=== PATIENT | female | born 1935 | race Caucasian/White ===

== ENCOUNTER 2020-08-04 20:47 | Inpatient (IN) | payer MEDICARE, OTHER ==
[~2020-08-04] VITALS: Ht 149.9 cm; Wt 51.3 kg
--- NOTE | 2020-08-04 21:07 | NUR ---
LUCIA FROM [facility]. TO ER BED 11. LINDSAY SPEAKER, YAMILA JUNG AT BEDSIDE FOR TRANSLATION. BROUGHT IN FOR PT HAS BEEN NOTED WALKING AROUND THE FACILITY AND SLEEPLESSNESS X 2 DAYS. PT WAS ALSO REPORTED POOR ORAL INTAKE WELL. WAS AT THE BEDSIDE FOR EVAL. ORDERS RECEIVED, NOTED AND CARIED OUT.
[2020-08-04 21:14] LABS: HEMATOCRIT 38 % (33-45)
[2020-08-04 21:17] LABS: BASOPHILS % (AUTO) 0.4 % (0.0-2.0); EOSINOPHILS % (AUTO) 2.2 % (0.0-6.0); HEMOGLOBIN 12.6 g/dL (11.5-14.8); LYMPHOCYTES # (AUTO) 1.7 /CMM (0.8-4.8); LYMPHOCYTES % (AUTO) 23.7 % (20.0-44.0); MEAN CORPUSCULAR HGB CONC 33 g/dl (31.0-36.0); MEAN CORPUSCULAR VOLUME 93 fL (82-100); MONOCYTES # (AUTO) 0.5 /CMM (0.1-1.30); MONOCYTES % (AUTO) 7.1 % (2.0-12.0); NEUTROPHILS # (AUTO) 4.8 /CMM (1.8-8.9); NEUTROPHILS % (AUTO) 66.6 % (43.0-81.0); PLATELET COUNT (AUTO) 282 /CMM (150-450); RED BLOOD CELL COUNT(AUTO) 4.08 MIL/uL (4.0-5.2); WHITE BLOOD COUNT (AUTO) 7.3 K/uL (4.3-11.0)
[2020-08-04 21:28] LABS: ALANINE AMINOTRANSFERASE 29 U/L (12-78); ALBUMIN 3.6 g/dL (3.4-5.0); ALCOHOL, BLOOD < 3 mg/dL (0-0); ALKALINE PHOSPHATASE 77 U/L (46-116); ASPARTATE AMINOTRANSFERASE 27 U/L (15-37); BILIRUBIN,DIRECT 0.1 mg/dL (0.0-0.2); BILIRUBIN,TOTAL 0.4 mg/dL (0.2-1.0); CALCIUM, SERUM 8.9 mg/dL (8.5-10.1); CARBON DIOXIDE 28 mmol/L (21-32); CHLORIDE 104 mmol/L (98-107); CREATININE 1.3 mg/dL (0.6-1.3); GLUCOSE 96 mg/dL (74-106); SODIUM SERUM 142 mmol/L (136-145); TOTAL PROTEIN, SERUM 7.6 g/dL (6.4-8.2); UREA NITROGEN, BLOOD 33 mg/dL (7-18)
[2020-08-04 21:29] LABS: ACETAMINOPHEN < 10 ug/ml (10-30)
--- NOTE | 2020-08-04 21:31 | NUR ---
COVID SWABBED, SENT TO LAB
--- NOTE | 2020-08-04 21:44 | NUR ---
urine sent to lab
[2020-08-04 21:57] LABS: BILIRUBIN,URINE Negative (NEGATIVE); COLOR,URINE YELLOW (YELLOW); LEUKOCYTE ESTERASE ,URINE Moderate (NEGATIVE); NITRITE, URINE Positive (NEGATIVE); PROTEIN,URINE 30 mg/dl (NEGATIVE); UGLUCOSE Negative (NEGATIVE); UROBILINOGEN,URINE 0.2 EU/dL (0.2)
[2020-08-04] MEDS ORDERED: IV NS 0.9% 1,000 ML BAG IV ONE (22:00)
[2020-08-04 22:01] LABS: B-TYPE NATRIURETIC PEPTIDE 116 PG/ML (0-125)
[2020-08-04 22:07] LABS: RBC,URINE 0-2 /HPF (0-2); WBC,URINE 81-100 /HPF (0-3)
[2020-08-04 22:08] LABS: BACTERIA,URINE Moderate /HPF (None Seen); SQUAMOUS EPITHELIAL CELL,UR 0-2 /HPF (None Seen)
[2020-08-04] MEDS ORDERED: CEFTRIAXONE 1GM BAG (ER ONLY) 1 GM/50 ML PIGGYBACK IV ONE (22:30)
[2020-08-04] MEDS ORDERED: IV NS 0.9% 500 ML BAG IV ONE (22:30)
--- NOTE | 2020-08-04 22:30 | NUR ---
CALLED VALMEYER FIXER SUPERVISOR FOR PSYCH EVAL.
[2020-08-04] MEDS ORDERED: CEPH500C2 PO (23:00)
[2020-08-04] MEDS ORDERED: CEFTRIAXONE 1GM BAG (ER ONLY) 50 ML IV ONE (23:33)
--- NOTE | 2020-08-04 23:39 | NUR ---
PERICO [id number]
--- NOTE | 2020-08-04 23:47 | NUR ---
report given to matt Moseley for nova
--- NOTE | 2020-08-05 00:32 | NUR ---
IV removed. Catheter intact and site benign. Pressure and 4x4 applied to site. No bleeding noted.
--- NOTE | 2020-08-05 00:42 | NUR ---
PT WAS TRANSFERRE TO GPS UNIT IN STABLE CONDITION.
[2020-08-05 01:00] VITALS: BP 154/90
[2020-08-05] MEDS ORDERED: MAG HYDROX/AL HYDROX/SIMETH 30 ML UDC PO PRN (01:00)
[2020-08-05] MEDS ORDERED: MAGNESIUM HYDROXIDE 30 ML UDC PO PRN (01:00)
[2020-08-05] MEDS ORDERED: BLOOD SUGAR DIAGNOSTIC 1 EACH STRIP IN ONE (01:00)
--- NOTE | 2020-08-05 01:00 | NUR ---
PATIENT IS A 84 YEAR OLD FEMALE, BROUGHT IN TO THE HOSPITAL BY AMBULANCE FROM [facility] , ADMITTED ON A 5150 HOLD GRAVE DISABILITY, PT IS FARSI SPEAKING ONLY WITH VERY LITTLE LATVIAN, ASK BRAD RN (SHYAM RN)WHO IS FARSI SPEAKING ALSO TO TRANSLATE, UPON FACE TO FACE ASSESSMENT WITH INTERVIEW PT CAN TELL HER NAME BUT SHE IS CLAIMING THAT SHE IS ON HER HOUSE AND SHE WANT TO GO TO THE [place], ALSO SHE IS UNABLE TO REMEMBER WHERE SHE IS AND HOW SHE GET TO THE HOSPITAL. PATIENT WAS ON THE UNIT, PATIENT TENDS TO WANDER FROM ROOM TO ROOM. PER HOLD PATIENT HAS BEEN HAVING ALTERED STATE OF AWARENESS, REFUSING TO COMPLY AND UNABLE TO CARE FOR HERSELF. Q15 SAFETY CHECKS INITIATED. CARE PLAN STARTED. PATIENT WILL BE UNDER THE CARE OF DR. NAVARRETE AND KARELY HAMPTON FOR PSYCHE AND MEDICAL DOCTORS RESPECTIVELY. BELONGINGS AND CONTRABAND CHECKED. SKIN AND BODY ASSESSMENT DONE, NO OPEN WOUNDS NOTED EXCEPT FOR BRUISES. PICTURES TAKEN AND PLACED IN THE CHART. GUIDE TO PRESCRIPTION MEDICATIONS AND PATIENT'S RIGHTS HANDBOOK PROVIDED, PATIENT FURTHER ADVISED OF THE HOLD. WILL MONITOR PATIENT FOR MOOD, SAFETY AND BEHAVIOR.
[2020-08-05] MEDS ORDERED: BISA10SU61 RC (04:47)
[2020-08-05] MEDS ORDERED: SENN-261 PO (04:56)
[2020-08-05] MEDS ORDERED: MEMA10TA PO (04:56)
[2020-08-05] MEDS ORDERED: MELA5TAB PO (04:56)
[2020-08-05] MEDS ORDERED: TRAZ-182 PO (04:56)
[2020-08-05] MEDS ORDERED: OLAN2.5T3 PO (04:56)
[2020-08-05] MEDS ORDERED: QUET25TA PO (04:56)
[2020-08-05] MEDS ORDERED: PANT20TA2 PO (04:56)
--- NOTE | 2020-08-05 06:34 | NUR ---
CALL GRAND DAUGHTER OLIMPIA [phone] BUT NO ANSWER, LEAVE MSG TO VOICEMAIL REGARDING THE ADMISSION OF HER GRANDMOTHER TO THE UNIT
[2020-08-05 08:00] VITALS: BP 155/82
[2020-08-05] MEDS: CEPHALEXIN MONOHYDRATE 500 MG CAPSULE PO SCH ×2 (09:44→17:53)
--- NOTE | 2020-08-05 10:45 | NUR ---
Facility Contact: SW received an email from her Chief Operations Officer, Steph Madrid, stating the post adoption coordinator at [facility], Bernrado , informed her that the pt will not be reaccepted to their facility.
--- NOTE | 2020-08-05 11:10 | NUR ---
Family Contact: SW called the pts son, Jesse ([phone]), and left a voicemail stating that the SW would like to discuss the pts discharge and treatment plan.
--- NOTE | 2020-08-05 11:35 | NUR ---
Family Contact: SW called the pts granddaughter, Ann ([phone]), and received collateral information from her. She stated that the pt has been moving around from placement to placement because no facility can manage her wandering behaviors. SW stated that she can attempt to find a locked facility for the pt.
[2020-08-05 16:00] VITALS: BP 119/62
--- NOTE | 2020-08-05 17:25 | NUR ---
Initial Discharge Plan: Pt currently resides at [facility] located at [address] [place] [address]; ([phone]). Per pt, she was unable to state where to return. Per Bernardo at the facility ([phone]), pt cannot return. NEW will work with the pt and the MD regarding appropriate discharge planning. SW will form a safe and proper discharge plan.
--- NOTE | 2020-08-05 19:41 | NUR ---
RN NOTE PATIENT SOCIALIZED WITH OTHERS THROUGHOUT THE DAY, PATIENT SPEAKING IN MULTIPLE LANGUAGES AT A TIME, MAKING IT DIFFICULT TO COMMUNICATE WITH OTHERS. PATIENT WITH S/S OF CONFUSION. PATIENT WANDERING INTO OTHER PATIENTS ROOMS AND GOING THROUGH THEIR BELONGINGS. PATIENT REDIRECTED THROUGHOUT THE DAY. PATIENT CURRENTLY IN BED. BED LOCKED IN LOWEST POSITION. ALL SAFETY MEASURES FOLLOWED. END RN NOTE. DAVE.
[2020-08-05 20:00] VITALS: BP 145/73
[2020-08-05 20:43] VITALS: BP 145/73
[2020-08-06] MEDS: TEMAZEPAM 7.5 MG CAPSULE PO PRN (00:01)
--- NOTE | 2020-08-06 00:04 | NUR ---
GPS RN NOTE: INSOMNIA PATIENT IS UNABLE TO SLEEP, HYPERVERBAL, RESTLESS. PRN RESTORIL 7.5 MG 1 CAP PO GIVEN. WILL CONTINUE TO MONITOR.
--- NOTE | 2020-08-06 03:36 | NUR ---
RN NOTE PATIENT HAS BEEN SLEEPING COMFORTABLY SINCE 129, RESTORIL WAS GIVEN ORDERED.
[2020-08-06 07:52] LABS: ALBUMIN 3.4 g/dL (3.4-5.0); BILIRUBIN,TOTAL 0.4 mg/dL (0.2-1.0); CALCIUM, SERUM 8.9 mg/dL (8.5-10.1); POTASSIUM 3.7 mmol/L (3.5-5.1); TOTAL PROTEIN, SERUM 7.4 g/dL (6.4-8.2)
[2020-08-06 08:00] VITALS: BP 110/56
[2020-08-06] MEDS: CEPHALEXIN MONOHYDRATE 500 MG CAPSULE PO SCH ×2 (09:48→17:23)
[2020-08-06 16:00] VITALS: BP 142/90
[2020-08-06] MEDS: RIVASTIGMINE TARTRATE 1.5 MG CAPSULE PO SCH (19:43)
[2020-08-06] MEDS: risperiDONE 1 MG TABLET PO SCH (19:43)
[2020-08-06 20:00] VITALS: BP 125/70
[2020-08-06 20:35] VITALS: BP 125/70
[2020-08-06] MEDS: TRAZODONE 50 MG TABLET PO SCH (21:37)
[2020-08-07] MEDS: TEMAZEPAM 7.5 MG CAPSULE PO PRN (00:23)
--- NOTE | 2020-08-07 00:23 | NUR ---
GPS RN NOTE: INSOMNIA PATIENT IS UNABLE TO SLEEP, HYPERVERBAL, PRN RESTORIL 7.5 MG 1 CAP PO GIVEN. WILL CONTINUE TO MONITOR.
[2020-08-07] MEDS: risperiDONE 1 MG TABLET PO SCH ×2 (06:17→17:20)
[2020-08-07] MEDS: RIVASTIGMINE TARTRATE 1.5 MG CAPSULE PO SCH ×2 (06:17→17:20)
--- NOTE | 2020-08-07 07:30 | NUR ---
RN NOTES PT AWAKE, WALKING ALONG THE HALLWAY, NO SIGN OF PAIN OR DISTRESS, TALKS TO HERSELF, CALM, WILL CONTINUE TO MONITOR.
[2020-08-07 08:00] VITALS: BP 148/67
[2020-08-07] MEDS: CEPHALEXIN MONOHYDRATE 500 MG CAPSULE PO SCH ×2 (08:44→16:14)
[2020-08-07] MEDS: LORAZEPAM 0.5 MG TABLET PO PRN (12:20)
--- NOTE | 2020-08-07 15:26 | NUR ---
RN-CO: DR Rodriguez made aware of the patient's hold expiring today.
[2020-08-07 16:00] VITALS: BP 127/90
--- NOTE | 2020-08-07 18:04 | NUR ---
RN NOTES PT AWAKE, SITTING IN HER CHAIR, ALERT TO SELF, WITH CONFUSION, WITH EPISODES OF TALKING TO HERSELF, PM MEDS GIVEN, COMPLIANT WITH MEDS, PM CARE PROVIDED, SAFETY PRECAUTIONS OBSERVED.
[2020-08-07 20:27] VITALS: BP 130/72
[2020-08-07] MEDS: TRAZODONE 50 MG TABLET PO SCH (21:17)
--- NOTE | 2020-08-07 21:45 | NUR ---
RN NOTE PT RECEIVED ALERT AND VERBALLY RESPONSIVE, DENIES ANY PAIN, BREATHING IS UNABORED, TALKS TO HERSELF, DISORGANIZED, AMBULATES OCCASIONALLY IN HALLWAY WITH STEADY GAIT. NO VOICED NEEDS AT THIS TIME,PT IS COMPLIANT WITH MEDICATIONS. SAFETY PRECAUTIONS OBSERVED. WILL CONTINUE MONITORING Q15 MINS WITH THE HELP OF STAFF TO MAINTAIN SAFETY.
[2020-08-08] MEDS: TEMAZEPAM 7.5 MG CAPSULE PO PRN (02:22)
[2020-08-08] MEDS: RIVASTIGMINE TARTRATE 1.5 MG CAPSULE PO SCH ×2 (06:12→17:56)
[2020-08-08] MEDS: risperiDONE 1 MG TABLET PO SCH ×2 (06:13→17:56)
[2020-08-08 08:00] VITALS: BP 128/77
[2020-08-08] MEDS: CEPHALEXIN MONOHYDRATE 500 MG CAPSULE PO SCH ×2 (09:00→17:53)
[2020-08-08] MEDS ORDERED: SENNOSIDES 8.6 MG TABLET PO PRN (12:00)
[2020-08-08 16:00] VITALS: BP 110/63
[2020-08-08 20:55] VITALS: BP 123/61
[2020-08-08] MEDS: TRAZODONE 50 MG TABLET PO SCH (21:02)
[2020-08-09] MEDS: RIVASTIGMINE TARTRATE 1.5 MG CAPSULE PO SCH ×2 (06:50→18:23)
[2020-08-09] MEDS: risperiDONE 1 MG TABLET PO SCH ×2 (06:51→18:23)
[2020-08-09 08:00] VITALS: BP 112/64
[2020-08-09] MEDS: BISACODYL SUPP (10 MG) 10 MG/SUPP.RECT SUPP.RECT RC SCH (09:00)
[2020-08-09] MEDS: MEMANTINE HCL 5 MG TABLET PO SCH (09:01)
[2020-08-09] MEDS: PANTOPRAZOLE 40 MG TABLET.DR PO SCH (09:01)
[2020-08-09] MEDS: CEPHALEXIN MONOHYDRATE 500 MG CAPSULE PO SCH ×2 (09:01→17:10)
--- NOTE | 2020-08-09 09:15 | NUR ---
RN NOTE PT RECEIVED ALERT AND ORIENTED X1-2. DENIES ANY PAIN, BREATHING IS UNABORED, TALKS TO HERSELF, DISORGANIZED, AMBULATES OCCASIONALLY IN HALLWAY WITH STEADY GAIT. NO VOICED NEEDS AT THIS TIME, PT IS COMPLIANT WITH MEDICATIONS. SAFETY PRECAUTIONS OBSERVED. WILL CONTINUE MONITORING Q15 MINS WITH THE HELP OF STAFF TO MAINTAIN SAFETY. END RN NOTE. BN
[2020-08-09] MEDS: ACETAMINOPHEN 325 MG TABLET PO PRN (14:10)
[2020-08-09 16:00] VITALS: BP 135/69
--- NOTE | 2020-08-09 19:20 | NUR ---
PT RECEIVED IN THE ROOM STANDING AT BEDSIDE ATTEMPTING TO TAKE HER DIAPER OFF. PT LOSS BALANCE AND ALMOST FELL. ASSIST PT TO BED, DIAPER PUT ON BY STAFF AND PLACED IN A CHAIR IN THE HERNA[place] FOR CLOSE OBSERVATION. AOX1, CONFUSED, [place] AND ABLE TO HELP WITH REPOSITIONING. PT UNCOOPERATIVE AT THIS TIME. TALKS TO HERSELF IN FARSI. UNDERSTANDS AND SPEAKS LUXEMBOURGER. RESPIRATIONS EVEN AND UNLABORED. NO S/S OF RESPIRATORY DISTRESS. DENIES PAIN AND DISCOMFORT. SAFETY MAINTAINED AND PT FREE FROM INJURY. WILL CONTINUE TO MONITOR.
[2020-08-09 20:09] VITALS: BP 114/63
[2020-08-09] MEDS: LORAZEPAM 0.5 MG TABLET PO PRN (20:27)
[2020-08-09] MEDS: TRAZODONE 50 MG TABLET PO SCH (20:27)
--- NOTE | 2020-08-09 22:00 | NUR ---
PT COOPERATIVE WITH TAKING MEDS.
[2020-08-10] MEDS: RIVASTIGMINE TARTRATE 1.5 MG CAPSULE PO SCH ×2 (06:28→17:46)
[2020-08-10] MEDS: risperiDONE 1 MG TABLET PO SCH ×2 (06:28→17:46)
--- NOTE | 2020-08-10 06:38 | NUR ---
PT VERY CONFUSED THROUGHOUT THE NIGHT AND DID NOT SLEEP. SPEAKS TAJIK WHEN ASKED.. COMPLIANT WITH MEDS. SAFETY MAINTAINED. FREE FROM INJURY.
--- NOTE | 2020-08-10 07:07 | NUR ---
EXELON/ RIVASTIGMINE 1.5 REMOVED FROM [facility] AND MED WASN'T IN THE PACKAGE. 2ND PILL WAS REMOVED WITH MED IN PLACE. WITNESSED BY CHATO JUNG .
[2020-08-10 08:00] VITALS: BP 125/67
[2020-08-10] MEDS: BISACODYL SUPP (10 MG) 10 MG/SUPP.RECT SUPP.RECT RC SCH (09:00)
[2020-08-10] MEDS: PANTOPRAZOLE 40 MG TABLET.DR PO SCH (09:09)
[2020-08-10] MEDS: MEMANTINE HCL 5 MG TABLET PO SCH (09:10)
[2020-08-10] MEDS: CEPHALEXIN MONOHYDRATE 500 MG CAPSULE PO SCH (09:10)
--- NOTE | 2020-08-10 10:42 | NUR ---
Family Contact: SW called the pts son, Jesse ([phone]), and left a voicemail stating that the SW would like to discuss the pts discharge and treatment plan.
--- NOTE | 2020-08-10 10:42 | NUR ---
Family Contact: SW called the pts granddaughter, Ann ([phone]), and left a voicemail expressing that the SW is having a difficult time reaching the pts son and needs to have a discharge plan ready for the pt.
--- NOTE | 2020-08-10 10:45 | NUR ---
SNF Referral: SW faxed a [facility] facility referral to the following two facilities: [facility] with attn to Luz Maria/Ty: [phone] [facility] with attn Uyen: [phone]
[2020-08-10 16:00] VITALS: BP 142/75
[2020-08-10 19:52] VITALS: BP 147/72
--- NOTE | 2020-08-10 19:54 | NUR ---
PT APPEARS TO BE SLEEPING AT THIS TIME, RESPIRATIONS EVEN AND UNLABORED. NO S/ S OF ACUTE DISTRESS
[2020-08-10] MEDS: TRAZODONE 50 MG TABLET PO SCH (21:29)
[2020-08-10] MEDS: TEMAZEPAM 7.5 MG CAPSULE PO PRN (21:29)
[2020-08-11] MEDS: risperiDONE 1 MG TABLET PO SCH ×2 (06:00→18:03)
[2020-08-11] MEDS: RIVASTIGMINE TARTRATE 1.5 MG CAPSULE PO SCH ×2 (06:00→18:03)
--- NOTE | 2020-08-11 06:04 | NUR ---
PT CONFUSED, CALM AND COOPERATIVE. SLEPT THROUGHOUT THE NIGHT. RESPIRATIONS EVEN AND UNLABORED WITH NO S/S OF ACUTE DISTRESS. PT DIDN'T ATTEMPT TO GET OOB. SAFETY MAINTAINED.
[2020-08-11 08:00] VITALS: BP 110/66
[2020-08-11] MEDS: BISACODYL SUPP (10 MG) 10 MG/SUPP.RECT SUPP.RECT RC SCH (09:00)
--- NOTE | 2020-08-11 09:34 | NUR ---
WOUND CARE CONSULT: PT PRESENTS VERY SLEEPY WITH SOME REDNESS TO ARMS, INTACT AREA OF EDEMA TO LEFT UPPER THIGH AND RASH TO ABDOMINAL/GROIN FOLDS WHICH IS PRESENT ON ADMISSION. RECOMMENDATIONS MADE FOR SKIN PROTECTION. DISCUSSED WITH NURSING STAFF. IN AGREEMENT WITH PLAN OF CARE. Addendum: 08/11/20 at 0936 by CARLOS PEREA WNDNU Amended: Links added.
[2020-08-11] MEDS ORDERED: Z GUARD REMEDY 2 OZ OINT TP PRN (10:00)
[2020-08-11] MEDS: PANTOPRAZOLE 40 MG TABLET.DR PO SCH (10:39)
[2020-08-11] MEDS: MEMANTINE HCL 5 MG TABLET PO SCH (10:39)
[2020-08-11] MEDS: Z GUARD REMEDY 2 OZ OINT TP SCH (10:39)
[2020-08-11 16:00] VITALS: BP 100/57
[2020-08-11] MEDS: CLOTRIMAZOLE 1% 15 GM TUBE TP SCH (17:57)
[2020-08-11 20:00] VITALS: BP 138/82
[2020-08-11 20:12] VITALS: BP 138/82
--- NOTE | 2020-08-11 20:12 | NUR ---
RN NOTES COMPLAINED OF CONSTIPATION SENNOKOT 1 TAB PO GIVEN ORDERED
[2020-08-11] MEDS: TEMAZEPAM 7.5 MG CAPSULE PO PRN (21:54)
[2020-08-11] MEDS: TRAZODONE 50 MG TABLET PO SCH (21:54)
[2020-08-12] MEDS: risperiDONE 1 MG TABLET PO SCH ×2 (05:38→18:22)
[2020-08-12] MEDS: RIVASTIGMINE TARTRATE 1.5 MG CAPSULE PO SCH ×2 (05:38→18:22)
[2020-08-12 08:00] VITALS: BP 110/74
[2020-08-12] MEDS: CLOTRIMAZOLE 1% 15 GM TUBE TP SCH ×2 (09:00→17:00)
[2020-08-12] MEDS: Z GUARD REMEDY 2 OZ OINT TP SCH (09:00)
[2020-08-12] MEDS: BISACODYL SUPP (10 MG) 10 MG/SUPP.RECT SUPP.RECT RC SCH (09:00)
[2020-08-12] MEDS: MEMANTINE HCL 5 MG TABLET PO SCH (10:41)
[2020-08-12] MEDS: PANTOPRAZOLE 40 MG TABLET.DR PO SCH (10:41)
--- NOTE | 2020-08-12 11:45 | NUR ---
Probable Cause Hearing: Pts [id number] hold was upheld for grave disability.
[2020-08-12 16:00] VITALS: BP 118/66
[2020-08-12] MEDS: LORAZEPAM 0.5 MG TABLET PO PRN ×2 (16:00→22:43)
[2020-08-12 19:54] VITALS: BP 150/76
[2020-08-12] MEDS: TRAZODONE 50 MG TABLET PO SCH (21:09)
[2020-08-12] MEDS: TEMAZEPAM 7.5 MG CAPSULE PO PRN (21:45)
--- NOTE | 2020-08-12 22:47 | NUR ---
PATIENT IN SNEHAL CHAIR, VISIBLY UPSET, TEARFUL, UNCOOPERATIVE, UNWILLING TO STAY IN HER BED/ROOM. KEEPS WALKING INTO OTHER PATIENTS ROOMS, DISRUPTIVE. ATIVAN PRN ADMINISTERED, WILL CONTINUE MONITORING CLOSELY.
[2020-08-13] MEDS: RIVASTIGMINE TARTRATE 1.5 MG CAPSULE PO SCH ×2 (05:49→17:34)
[2020-08-13] MEDS: risperiDONE 1 MG TABLET PO SCH ×2 (05:50→17:34)
--- NOTE | 2020-08-13 06:13 | NUR ---
YONI SLEPT FOR 3.5 HOURS, RESTING IN BED AT THIS TIME, NO APPARENT DISTRESS. SAFETY PRECAUTIONS IN PLACE, WILL CONTINUE MONITORING CLOSELY.
[2020-08-13] MEDS: PANTOPRAZOLE 40 MG TABLET.DR PO SCH (07:30)
[2020-08-13 08:00] VITALS: BP 128/70
[2020-08-13] MEDS: CLOTRIMAZOLE 1% 15 GM TUBE TP SCH ×2 (09:00→17:32)
[2020-08-13] MEDS: BISACODYL SUPP (10 MG) 10 MG/SUPP.RECT SUPP.RECT RC SCH (09:00)
[2020-08-13] MEDS: Z GUARD REMEDY 2 OZ OINT TP SCH (09:00)
[2020-08-13] MEDS: MEMANTINE HCL 5 MG TABLET PO SCH (09:00)
--- NOTE | 2020-08-13 09:00 | NUR ---
RN NOTE- PT ASLEEP, MINIMAL SLEEP OVER NIGHT, MEDS NOT GIVEN PT LETHARGIC PO INTAKE FAIR WILL ALLOW PT TO SLEEP AWHILE BUT WAKE LATE THIS MORNING
[2020-08-13 16:00] VITALS: BP 126/65
[2020-08-13] MEDS: LORAZEPAM 0.5 MG TABLET PO PRN (20:23)
--- NOTE | 2020-08-13 20:23 | NUR ---
RN NOTES: ANXIETY PT. C/O FEELING ANXIOUS , RESTLESS , ATIVAN 0.5 MG PO PRN GIVEN PER PT. REQUEST , WILL CONTINUE TO MONITOR.
[2020-08-13 20:40] VITALS: BP 115/61
[2020-08-13] MEDS: TRAZODONE 50 MG TABLET PO SCH (21:13)
[2020-08-13] MEDS: TEMAZEPAM 7.5 MG CAPSULE PO PRN (22:42)
--- NOTE | 2020-08-13 22:44 | NUR ---
GPS RN NOTE: INSOMNIA PATIENT IS UNABLE TO SLEEP, HYPERVERBAL, PRN RESTORIL 7.5 MG 1 CAP PO GIVEN. WILL CONTINUE TO MONITOR.
[2020-08-14] MEDS: risperiDONE 1 MG TABLET PO SCH ×2 (06:16→17:04)
[2020-08-14] MEDS: RIVASTIGMINE TARTRATE 1.5 MG CAPSULE PO SCH ×2 (06:16→17:03)
[2020-08-14 08:00] VITALS: BP 134/72
[2020-08-14] MEDS: PANTOPRAZOLE 40 MG TABLET.DR PO SCH (08:14)
[2020-08-14] MEDS: MEMANTINE HCL 5 MG TABLET PO SCH (08:14)
[2020-08-14] MEDS: BISACODYL SUPP (10 MG) 10 MG/SUPP.RECT SUPP.RECT RC SCH (09:24)
[2020-08-14] MEDS: Z GUARD REMEDY 2 OZ OINT TP SCH (09:25)
[2020-08-14] MEDS: CLOTRIMAZOLE 1% 15 GM TUBE TP SCH ×2 (09:25→16:26)
[2020-08-14 16:00] VITALS: BP 127/65
[2020-08-14 20:07] VITALS: BP 139/76
[2020-08-14] MEDS: risperiDONE 0.25 MG TABLET PO SCH (20:57)
[2020-08-14] MEDS: TRAZODONE 50 MG TABLET PO SCH (21:58)
[2020-08-15] MEDS: LORAZEPAM 0.5 MG TABLET PO PRN ×2 (02:10→23:28)
[2020-08-15] MEDS: RIVASTIGMINE TARTRATE 1.5 MG CAPSULE PO SCH ×2 (07:00→20:26)
--- NOTE | 2020-08-15 07:22 | NUR ---
gps rn note did not administer exelon 1.5 mg at 0600 d/t patient just barely fell asleep at 0400. endorsed to am shift to give with morning medication. Vipul JUNG acknowledged.
[2020-08-15] MEDS: PANTOPRAZOLE 40 MG TABLET.DR PO SCH (07:30)
[2020-08-15 08:00] VITALS: BP 138/66
[2020-08-15] MEDS: MEMANTINE HCL 5 MG TABLET PO SCH (08:31)
[2020-08-15] MEDS: risperiDONE 0.25 MG TABLET PO SCH ×2 (08:31→21:12)
[2020-08-15] MEDS: BISACODYL SUPP (10 MG) 10 MG/SUPP.RECT SUPP.RECT RC SCH (08:32)
[2020-08-15] MEDS: Z GUARD REMEDY 2 OZ OINT TP SCH (09:00)
[2020-08-15] MEDS: CLOTRIMAZOLE 1% 15 GM TUBE TP SCH ×2 (09:00→17:01)
--- NOTE | 2020-08-15 10:00 | NUR ---
RN NOTE PT RECEIVED ALERT AND ORIENTED X1-2. DENIES ANY PAIN OR DISCOMFORT, BREATHING IS UNLABORED, TALKS TO HERSELF, DISORGANIZED, AMBULATES OCCASIONALLY IN HALLWAY WITH STEADY GAIT. NO VOICED NEEDS AT THIS TIME, PT IS COMPLIANT WITH MEDICATIONS. SAFETY PRECAUTIONS OBSERVED. WILL CONTINUE MONITORING Q15 MINS WITH THE HELP OF STAFF TO MAINTAIN SAFETY. END RN NOTE. BN
[2020-08-15 16:00] VITALS: BP 128/61
[2020-08-15 20:07] VITALS: BP 157/99
[2020-08-15] MEDS: TRAZODONE 50 MG TABLET PO SCH (21:11)
--- NOTE | 2020-08-15 23:30 | NUR ---
NURSES NOTES: PATIENT BECAME AGITATED, BANGING HER TABLE. ADMINISTERED ATIVAN 0.5 MG ORALLY PRN ORDER. WILL CONTINUE TO MONITOR PATIENT AND EFFICACY OF MEDICATION.
[2020-08-16] MEDS: TEMAZEPAM 7.5 MG CAPSULE PO PRN (02:24)
--- NOTE | 2020-08-16 02:24 | NUR ---
NURSES NOTES: PATIENT NOTED TO BE AWAKE AND TALKING TO HERSELF. RESTORIL 7.5MG GIVEN ORALLY PRN ORDER. WILL MONITOR PATIENT'S SLEEP PATTERN.
[2020-08-16] MEDS: RIVASTIGMINE TARTRATE 1.5 MG CAPSULE PO SCH ×2 (06:11→17:10)
[2020-08-16] MEDS: PANTOPRAZOLE 40 MG TABLET.DR PO SCH (07:30)
[2020-08-16 08:00] VITALS: BP 124/69
[2020-08-16] MEDS: risperiDONE 0.25 MG TABLET PO SCH ×2 (08:24→21:02)
[2020-08-16] MEDS: BISACODYL SUPP (10 MG) 10 MG/SUPP.RECT SUPP.RECT RC SCH (08:24)
[2020-08-16] MEDS: MEMANTINE HCL 5 MG TABLET PO SCH (08:24)
[2020-08-16] MEDS: Z GUARD REMEDY 2 OZ OINT TP SCH (08:25)
[2020-08-16] MEDS: CLOTRIMAZOLE 1% 15 GM TUBE TP SCH ×2 (08:25→16:12)
[2020-08-16] MEDS: ENSURE ENLIVE 237 ML LIQUID (VANILLA) PO SCH ×2 (10:30→16:12)
[2020-08-16 16:00] VITALS: BP 115/62
--- NOTE | 2020-08-16 18:43 | NUR ---
GPS RN NOTES PATIENT IN ACTIVITY ROOM WATCHING TV. PT IS COMPLIANT WITH MEDICATIONS. SAFETY PRECAUTIONS OBSERVED.
[2020-08-16 20:42] VITALS: BP 114/67
[2020-08-16] MEDS: TRAZODONE 50 MG TABLET PO SCH (21:02)
[2020-08-16] MEDS: QUETIAPINE FUMARATE 25 MG TABLET PO SCH (22:21)
[2020-08-16] MEDS: ACETAMINOPHEN 325 MG TABLET PO PRN (22:21)
[2020-08-17] MEDS: RIVASTIGMINE TARTRATE 1.5 MG CAPSULE PO SCH ×3 (05:47→17:19)
--- NOTE | 2020-08-17 06:16 | NUR ---
PATIENT RECEIVED SEROQUEL LAST NIGHT, RISPERDAL DC'D PER MD. PT SLEPT FOR 8 HOURS, BED BATH GIVEN THIS AM, LINENS CHANGED. HELD HER AM DOSE OF EXELON PT IS TOO SEDATED. BED LOCKED AND KEPT IN LOWEST POSITION, ALARM ON. WILL CONTINUE MONITORING SAFELY.
[2020-08-17 08:00] VITALS: BP 126/73
[2020-08-17] MEDS: PANTOPRAZOLE 40 MG TABLET.DR PO SCH (08:09)
[2020-08-17] MEDS: MEMANTINE HCL 5 MG TABLET PO SCH (08:10)
[2020-08-17] MEDS: BISACODYL SUPP (10 MG) 10 MG/SUPP.RECT SUPP.RECT RC SCH (09:00)
[2020-08-17] MEDS: ENSURE ENLIVE 237 ML LIQUID (VANILLA) PO SCH ×2 (09:00→17:00)
[2020-08-17] MEDS: Z GUARD REMEDY 2 OZ OINT TP SCH (12:17)
[2020-08-17] MEDS: CLOTRIMAZOLE 1% 15 GM TUBE TP SCH ×2 (12:18→17:19)
[2020-08-17 16:00] VITALS: BP 111/67
[2020-08-17] MEDS: TRAZODONE 50 MG TABLET PO SCH (21:21)
[2020-08-17] MEDS: QUETIAPINE FUMARATE 25 MG TABLET PO SCH (21:21)
[2020-08-18 03:56] VITALS: BP 112/66
[2020-08-18 04:38] VITALS: BP 112/66
[2020-08-18] MEDS: RIVASTIGMINE TARTRATE 1.5 MG CAPSULE PO SCH ×2 (05:55→17:24)
--- NOTE | 2020-08-18 06:21 | NUR ---
PT SLEPT FOR 8 HOURS, NO DISTRESS NOTED. BED LOCKED AND KEPT IN LOWEST POSITION, ALARM ON. WILL CONTINUE MONITORING SAFELY.
[2020-08-18 08:00] VITALS: BP 133/71
[2020-08-18] MEDS: MEMANTINE HCL 5 MG TABLET PO SCH (08:22)
[2020-08-18] MEDS: ENSURE ENLIVE 237 ML LIQUID (VANILLA) PO SCH ×2 (08:22→17:03)
[2020-08-18] MEDS: PANTOPRAZOLE 40 MG TABLET.DR PO SCH (08:22)
[2020-08-18] MEDS: BISACODYL SUPP (10 MG) 10 MG/SUPP.RECT SUPP.RECT RC SCH (08:23)
[2020-08-18] MEDS: Z GUARD REMEDY 2 OZ OINT TP SCH (08:26)
[2020-08-18] MEDS: CLOTRIMAZOLE 1% 15 GM TUBE TP SCH ×2 (08:27→17:03)
--- NOTE | 2020-08-18 12:13 | NUR ---
Family Contact: SW called the pts granddaughter, Ann ([phone]), and informed her that the pt is going to be discharged tomorrow and provided her with the facility information.
--- NOTE | 2020-08-18 12:15 | NUR ---
Family Contact: NEW called the pts son, Jesse ([phone]), and informed him that the pt is going to be discharged the following day and provided him with the facility information.
[2020-08-18 16:00] VITALS: BP 145/90
[2020-08-18 20:00] VITALS: BP 131/72
[2020-08-18] MEDS: QUETIAPINE FUMARATE 25 MG TABLET PO SCH (21:17)
[2020-08-18] MEDS: TRAZODONE 50 MG TABLET PO SCH (21:17)
[2020-08-19] MEDS: RIVASTIGMINE TARTRATE 1.5 MG CAPSULE PO SCH ×2 (05:58→17:00)
[2020-08-19 08:00] VITALS: BP 141/79
[2020-08-19] MEDS: PANTOPRAZOLE 40 MG TABLET.DR PO SCH (08:13)
[2020-08-19] MEDS: MEMANTINE HCL 5 MG TABLET PO SCH (08:51)
[2020-08-19] MEDS: Z GUARD REMEDY 2 OZ OINT TP SCH (08:52)
[2020-08-19] MEDS: CLOTRIMAZOLE 1% 15 GM TUBE TP SCH ×2 (08:53→17:00)
[2020-08-19] MEDS: BISACODYL SUPP (10 MG) 10 MG/SUPP.RECT SUPP.RECT RC SCH (09:00)
[2020-08-19] MEDS: ENSURE ENLIVE 237 ML LIQUID (VANILLA) PO SCH ×2 (09:03→16:39)
--- NOTE | 2020-08-19 09:31 | NUR ---
Family Contact: SW called the pts son, Jesse ([phone]), and informed him that the SW received his voicemail. Pts son stated that he spoke to the MD the previous day and discussed pts discharge plan back to [facility] where the pt was originally residing. SW stated that she will call them and arrange the discharge there. Pts son asked the SW to call the Liaison as well, Chyna ([phone]).
--- NOTE | 2020-08-19 09:33 | NUR ---
[facility] Contact: NEW contacted Chyna ([phone] ext [phone]), pts Assisted Living Waiver program case making machine operator, who stated that the pts behaviors do not seem appropraite for her to be discharged back to the Assisted Living but stated that the SW should speak to the gis administrator of the assisted living. She inquired if the pt would remain in the hospital until she is ready for a discharge to assisted living and SW stated that if she considered stable and [facility] is not ready for her then we may have to discharge the pt to a SNF for the time being.
--- NOTE | 2020-08-19 09:35 | NUR ---
[facility] Contact: NEW called [facility] ([phone]) and left a message for the computer systems administrator Leann WOLFF will make another attempt to make contact. Addendum: 08/19/20 at 1046 by NEW VILLAR ([phone])
--- NOTE | 2020-08-19 10:56 | NUR ---
[facility] Contact: NEW called [facility] ([phone]) and spoke to Neris who stated that the pt will need to be assessed by the assisted living before she can return to the facility. She stated that the earliest date that they can come and assess the pt is Sunday. NEW stated that she will speak to the MD on this matter but will start the process of having the 602 form filled out before the evaluation.
[2020-08-19 16:00] VITALS: BP 119/71
[2020-08-19 20:39] VITALS: BP 103/54
[2020-08-19] MEDS: MIRTAZAPINE 15 MG TABLET PO SCH (21:24)
[2020-08-19] MEDS: QUETIAPINE FUMARATE 25 MG TABLET PO SCH (21:24)
[2020-08-20] MEDS: RIVASTIGMINE TARTRATE 1.5 MG CAPSULE PO SCH ×2 (06:11→17:02)
[2020-08-20] MEDS: PANTOPRAZOLE 40 MG TABLET.DR PO SCH (07:58)
[2020-08-20] MEDS: BISACODYL SUPP (10 MG) 10 MG/SUPP.RECT SUPP.RECT RC SCH (08:16)
[2020-08-20] MEDS: MEMANTINE HCL 5 MG TABLET PO SCH (08:17)
[2020-08-20] MEDS: CLOTRIMAZOLE 1% 15 GM TUBE TP SCH ×2 (08:17→16:02)
[2020-08-20] MEDS: ENSURE ENLIVE 237 ML LIQUID (VANILLA) PO SCH ×2 (08:18→16:02)
[2020-08-20] MEDS: Z GUARD REMEDY 2 OZ OINT TP SCH (08:18)
[2020-08-20 08:55] VITALS: BP 117/59
--- NOTE | 2020-08-20 10:10 | NUR ---
Family Contact: SW called the pts son, Jesse ([phone]), and informed him that the SW is working with [facility] in having the pt return there. SW informed him that the pt will be assessed by their staff on Sunday and that the placement decision will get finalized off of their decision. SW stated that if the pt is accepted back to [facility] then she will be discharged there on Sunday and the SW stated that if the pt is not accepted back at this time then the hospital will discharge the pt to [facility]. Pts son agreed to this plan.
--- NOTE | 2020-08-20 10:10 | NUR ---
[facility] Contact: SW called [facility] ([phone]) and left a voicemail Neris stating that the SW did not receive the 602 form.
--- NOTE | 2020-08-20 14:06 | NUR ---
Physicians Report: NEW faxed the completed 602 Physicians Report to [facility] with attn to Alma Rosa to the fax number: [phone].
[2020-08-20 16:12] VITALS: BP 112/59
[2020-08-20 20:10] VITALS: BP 136/74
[2020-08-20] MEDS: QUETIAPINE FUMARATE 25 MG TABLET PO SCH (21:08)
[2020-08-20] MEDS: MIRTAZAPINE 15 MG TABLET PO SCH (21:08)
[2020-08-21] MEDS: RIVASTIGMINE TARTRATE 1.5 MG CAPSULE PO SCH ×2 (06:24→17:02)
--- NOTE | 2020-08-21 06:29 | NUR ---
RN NOTES: PT. RESTING WELL IN HER ROOM, CALM COOPERTIVE AT THIS TIME , DENIES ANY PAIN/ DISCOMFORT AT THIS TIME, NO ACUTE DISTRESS NOTED , ENDORSE TO AM NURSE OR CONTINUITY WITH CARE.
[2020-08-21] MEDS: PANTOPRAZOLE 40 MG TABLET.DR PO SCH (08:06)
[2020-08-21] MEDS: CLOTRIMAZOLE 1% 15 GM TUBE TP SCH ×2 (08:06→17:02)
[2020-08-21] MEDS: MEMANTINE HCL 5 MG TABLET PO SCH (08:06)
[2020-08-21] MEDS: Z GUARD REMEDY 2 OZ OINT TP SCH (08:07)
[2020-08-21] MEDS: BISACODYL SUPP (10 MG) 10 MG/SUPP.RECT SUPP.RECT RC SCH (08:07)
[2020-08-21] MEDS: ENSURE ENLIVE 237 ML LIQUID (VANILLA) PO SCH ×2 (08:07→17:02)
[2020-08-21 08:30] VITALS: BP 143/79
[2020-08-21 16:00] VITALS: BP 119/73
[2020-08-21 20:02] VITALS: BP 157/87
--- NOTE | 2020-08-21 20:30 | NUR ---
RN NOTES PATIENT WALKING HALLWAYS WALKING INTO OTHER PATIENT ROOMS AND GRABBING STAFF MEMBERS. PATIENT PLACED IN SNEHAL CHAIR IN ACTIVITY ROOM. WILL CONTINUE TO MONITOR.
[2020-08-21] MEDS: QUETIAPINE FUMARATE 25 MG TABLET PO SCH (21:28)
[2020-08-21] MEDS: MIRTAZAPINE 15 MG TABLET PO SCH (21:28)
--- NOTE | 2020-08-21 21:30 | NUR ---
RN NOTES PATIENT IN SNEHAL CHAIR, AGITATED THROWING JUICE BOX. PATIENT TOOK PO MED CRUSHED IN APPLE SAUCE. FLUIDS PROVIDED. WILL CONTINUE TO MONITOR.
--- NOTE | 2020-08-22 | NUR ---
RN NOTES PATIENT PLACED IN BED. PATIENT IS CONFUSED, YELLING AND BEING COMBATIVE TOWARDS STAFF MEMBERS. SAFETY MEASURES ARE IN PLACE, PATIENT REORIENTATED. WILL CONTINUE TO MONITOR.
--- NOTE | 2020-08-22 00:30 | NUR ---
GPS RN NOTE, PATIENT IS CONFUSED, INCOHERENT, DELUSIONAL, AGITATED, AGGRESSIVE, YELLING, AND STRIKING OUT AT STAFF. LESS RESTRICTIVE MEASURES ATTEMPTED IE DIVERSION, 1 TO 1 INTERACTION, OFFERED PO MEDICATION, AND REORIENTATION WAS TRIED WITH NO POSITIVE EFFECT. PAGED DR KUMAR AND INFORMED HIM OF MY FINDINGS. DR KUMAR ORDERED ATIVAN 1MG IM ONCE. PATIENT GIVEN AFOREMENTIONED MEDICATION IN HER RIGHT VENTROGLUTEAL WITH THE HELP OF STAFF. PATIENT TOLERATE PROCEDURE WELL. ALL ORDERS NOTED AND CARRIED OUT WILL CONTINUE TO MONITOR THE PATIENT.
[2020-08-22] MEDS ORDERED: LORAZEPAM INJ 2 MG/ML VIAL IM ONE (01:30)
--- NOTE | 2020-08-22 04:00 | NUR ---
RN NOTES PATIENT UNABLE TO SLEEP. PATIENT PLACED IN SNEHAL CHAIR BEING MONITORED 1 TO 1. PATIENT CONFUSED. PATIENT BEING REORIENTED. FLUIDS AND SNACKS PROVIDE AT THIS TIME PATIENT TOLERATED WELL. WILL CONTINUE TO MONITOR.
[2020-08-22] MEDS: RIVASTIGMINE TARTRATE 1.5 MG CAPSULE PO SCH ×2 (06:00→18:26)
--- NOTE | 2020-08-22 06:03 | NUR ---
RN NOTES: MEDICATION REFUSAL PATIENT REFUSED MEDICATION EXELON 1.5 MG PO. RISK AND BENEFITS EXPLAINED OF MEDICATION COMPLIANCE. PATIENT CONTESTING STAFF FOR MORNING ADL CARE. PATIENT CONFUSED, REORIENTED AND EDUCATED FOR ADL'S.
[2020-08-22 08:00] VITALS: BP 117/69
[2020-08-22] MEDS: MEMANTINE HCL 5 MG TABLET PO SCH (08:22)
[2020-08-22] MEDS: BISACODYL SUPP (10 MG) 10 MG/SUPP.RECT SUPP.RECT RC SCH (08:22)
[2020-08-22] MEDS: PANTOPRAZOLE 40 MG TABLET.DR PO SCH (08:22)
[2020-08-22] MEDS: ENSURE ENLIVE 237 ML LIQUID (VANILLA) PO SCH ×2 (08:23→16:35)
[2020-08-22] MEDS: Z GUARD REMEDY 2 OZ OINT TP SCH (08:23)
[2020-08-22] MEDS: CLOTRIMAZOLE 1% 15 GM TUBE TP SCH ×2 (10:48→16:36)
[2020-08-22 16:00] VITALS: BP 128/70
[2020-08-22] MEDS: MIRTAZAPINE 15 MG TABLET PO SCH (21:05)
[2020-08-22] MEDS: QUETIAPINE FUMARATE 25 MG TABLET PO SCH (21:05)
[2020-08-22 21:28] VITALS: BP 133/65
[2020-08-23] MEDS: RIVASTIGMINE TARTRATE 1.5 MG CAPSULE PO SCH ×2 (06:31→18:31)
[2020-08-23 08:00] VITALS: BP 93/52
[2020-08-23] MEDS: PANTOPRAZOLE 40 MG TABLET.DR PO SCH (08:21)
[2020-08-23] MEDS: BISACODYL SUPP (10 MG) 10 MG/SUPP.RECT SUPP.RECT RC SCH (09:00)
--- NOTE | 2020-08-23 09:00 | NUR ---
RN NOTE- PT ALERT ORIENTED TO PERSON ONLY CONFUSED WITHDRAWN MED COMPLIANT NEEDS ATTENDED PT WITH NO BEHAVIORAL ISSUES AT PRESENT
[2020-08-23] MEDS: Z GUARD REMEDY 2 OZ OINT TP SCH (09:05)
[2020-08-23] MEDS: MEMANTINE HCL 5 MG TABLET PO SCH (09:05)
[2020-08-23] MEDS: CLOTRIMAZOLE 1% 15 GM TUBE TP SCH ×2 (09:05→16:48)
[2020-08-23] MEDS: ENSURE ENLIVE 237 ML LIQUID (VANILLA) PO SCH ×2 (09:05→16:48)
[2020-08-23 16:00] VITALS: BP 135/74
--- NOTE | 2020-08-23 16:44 | NUR ---
Individual Therapy: SW met with pt. bedside to conduct individual therapy regarding Positive Coping Mechanisms. However, pt. is confused and SW unable to engage pt. in meaningful conversation. SW will continue attempt to provide individual therapy.
[2020-08-23 20:29] VITALS: BP 143/82
[2020-08-23] MEDS: LORAZEPAM 0.5 MG TABLET PO PRN (21:11)
[2020-08-23] MEDS: QUETIAPINE FUMARATE 25 MG TABLET PO SCH (21:11)
[2020-08-23] MEDS: MIRTAZAPINE 15 MG TABLET PO SCH (21:11)
[2020-08-23] MEDS: TEMAZEPAM 7.5 MG CAPSULE PO PRN (22:28)
--- NOTE | 2020-08-24 04:14 | NUR ---
Nurses notes: Pt still awake @ this time, keep talking to herself, PRN meds are given but not effective, continue to monitor pt for safety and behavior.
[2020-08-24] MEDS: RIVASTIGMINE TARTRATE 1.5 MG CAPSULE PO SCH ×2 (05:19→17:40)
[2020-08-24 08:00] VITALS: BP 152/88
[2020-08-24] MEDS: CLOTRIMAZOLE 1% 15 GM TUBE TP SCH ×2 (08:48→17:21)
[2020-08-24] MEDS: PANTOPRAZOLE 40 MG TABLET.DR PO SCH (08:56)
[2020-08-24] MEDS: BISACODYL SUPP (10 MG) 10 MG/SUPP.RECT SUPP.RECT RC SCH (08:56)
[2020-08-24] MEDS: MEMANTINE HCL 5 MG TABLET PO SCH (08:56)
[2020-08-24] MEDS: ENSURE ENLIVE 237 ML LIQUID (VANILLA) PO SCH ×2 (09:00→17:21)
[2020-08-24] MEDS: Z GUARD REMEDY 2 OZ OINT TP SCH (10:16)
[2020-08-24] MEDS: QUETIAPINE FUMARATE 25 MG TABLET PO SCH ×2 (13:13→21:37)
--- NOTE | 2020-08-24 14:05 | NUR ---
[facility] visitation: Alma Rosa ([phone], [facility]) conducted a visitation for an assessment with the pt. Per CHIEF CUSTOMER OFFICER pt does not meet requirements for assisted living care. CHIEF CUSTOMER OFFICER suggested a higher level of care.
--- NOTE | 2020-08-24 14:40 | NUR ---
Phone Call: SW spoke to [facility] (Admissions- , [address] [place] [address]) to confirm the pt will be accepted to the facility after medically discharged on 08/25/20.
[2020-08-24] MEDS: ACETAMINOPHEN 325 MG TABLET PO PRN (15:12)
--- NOTE | 2020-08-24 15:37 | NUR ---
medicated with tylenol 650 mg po for back pain.
[2020-08-24 16:00] VITALS: BP 125/68
--- NOTE | 2020-08-24 17:38 | NUR ---
very drowsy at this time and not eating or taking meds.
[2020-08-24 20:14] VITALS: BP 108/59
[2020-08-24] MEDS: MIRTAZAPINE 15 MG TABLET PO SCH (21:37)
[2020-08-25] MEDS: RIVASTIGMINE TARTRATE 1.5 MG CAPSULE PO SCH (06:16)
--- NOTE | 2020-08-25 06:51 | NUR ---
RN NOTES: COLLECT COVID TEST AND SEND TO LAB.
[2020-08-25 08:00] VITALS: BP 124/64
--- NOTE | 2020-08-25 08:00 | NUR ---
RECEIVED PT. IN AM ALERT AND ORIENTED X1,PLEASANT.COOPERATIVE,POSSIBLE PLANS FOR DC TODAY.
--- NOTE | 2020-08-25 08:23 | NUR ---
Discharge note: Discharge note if pt goes to SNF: Pt will be discharged to [facility] () located at [address] [facility], [place] [address]; . SW informed pts son, Jesse ([phone]), about the discharge. Pt will be transported via [facility][id number] at 2PM. Upon discharge, the pt appears to be alert and oriented x4 (time, place, and self). Pt appears to be in a euthymic mood and presented with a calm mood. Pt denies both suicidal and homicidal ideation as well as auditory and visual hallucinations. Pt appears to be ambulatory with an unsteady gait. Pt appears to be well groomed and appropriately dressed. Pt will continue to be under the care of her psychiatrist, Dr. Kan, located at [address] [place] [address]; and sales service rep, Dr. Napier, located at [address] [facility] [id number], [place] [address]; . The choice of vendor form and multidisciplinary exit care form were done, printed, signed, and given to the patient.
[2020-08-25] MEDS: BISACODYL SUPP (10 MG) 10 MG/SUPP.RECT SUPP.RECT RC SCH (09:00)
[2020-08-25] MEDS: PANTOPRAZOLE 40 MG TABLET.DR PO SCH (09:10)
[2020-08-25] MEDS: QUETIAPINE FUMARATE 25 MG TABLET PO SCH (09:10)
[2020-08-25] MEDS: MEMANTINE HCL 5 MG TABLET PO SCH (09:11)
[2020-08-25] MEDS: CLOTRIMAZOLE 1% 15 GM TUBE TP SCH (09:11)
[2020-08-25] MEDS: ENSURE ENLIVE 237 ML LIQUID (VANILLA) PO SCH (09:11)
[2020-08-25] MEDS: Z GUARD REMEDY 2 OZ OINT TP SCH (09:16)
--- NOTE | 2020-08-25 10:30 | NUR ---
REFUSED DISCHARGE PHOTOS.
[2020-08-25] MEDS: LORAZEPAM 0.5 MG TABLET PO PRN (14:15)
--- NOTE | 2020-08-25 14:30 | NUR ---
ALL DC PAPERS SIGNED,INCLUDING BELONGING SHEET.REPORT CALLED TO TRANSFERRING FACILITY,REPORT TO DRIVERS,DENIES SUICIDAL IDEATION OR HOMICIDAL IDEATION,DID GET A LITTLE UPSET WHEN TRANSPORT HERE. SON CALLED AND PT. GIVEN ATIVAN 0.5 MG PO.TAKEN VIA AMB. TO FACILITY.
== END 2020-08-25 14:30 | DRG 881 ==
LOC: ER 20:53 → GPS 23:55
PROVIDERS: ADMIT Psychiatry & Neurology Psychiatry; ATTEND Registered Nurse
DX: F32.9 Major depressive disorder, single episode, unspecified (principal); G93.41 Metabolic encephalopathy; N39.0 Urinary tract infection, site not specified; F03.91 Unspecified dementia, unspecified severity, with behavioral disturbance; F29 Unspecified psychosis not due to a substance or known physiological condition; F41.9 Anxiety disorder, unspecified; Z20.822 Contact with and (suspected) exposure to COVID-19; Z91.09 Other allergy status, other than to drugs and biological substances; Z73.6 Limitation of activities due to disability; B96.20 Unspecified Escherichia coli [E. coli] as the cause of diseases classified elsewhere; F41.0 Panic disorder [episodic paroxysmal anxiety]
CPT/HCPCS: 36415; 71045-TC; 80048-TC; 80053-TC; 80061-TC; 80076-TC; 81001; 82962-TC; 83880; 84443-TC; 84484-TC; 85025-TC; 87040-TC; 87081-TC; 87086-TC; 87186-TC; C9803; G0480; J0696; J2060; J7040